=== PATIENT | male | born 1970 | race Caucasian/White ===

== ENCOUNTER 2020-07-19 18:17 | Emergency (ER) | payer OTHER, SELFPAY ==
--- NOTE | ~2020-07-19 | XR_ITS ---
XR chest 1V portable 07/19/2020 18:36 Indication: Covid positive. Shortness of breath. Procedure: AP portable chest Comparison: 09/04/2019 Findings: Bibasilar infiltrates, consistent with pneumonia. No pleural effusion or edema., heart size normal. No pneumothorax. Impression: 1: Bilateral infiltrates of the lower lung zones, consistent with pneumonia. Reviewed, dictated and finalized at location A. Impression: 1: Bilateral infiltrates of the lower lung zones, consistent with pneumonia.
[2020-07-19 18:20] VITALS: BP 152/84; PULSE 98; RESP 12; TEMP 36.4; O2SAT 99
--- NOTE | 2020-07-19 18:23 | ECG_ITS ---
Measurements Intervals [place] Rate: 102 P: 17 UT: 153 QRS: 19 QRSD: 92 T: 37 QT: 336 QTc: 438 Interpretive Statements SINUS TACHYCARDIA BASELINE WANDER- II, III BORDERLINE ECG Electronically Signed On 07-20-2020 14:54:12 HISTOPATH TECH by Julio Ybarra D.O.
--- NOTE | 2020-07-19 19:28 | ED.GENADULT ---
HPI - General Adult General Chief complaint: Upper Respiratory Infection Stated complaint: COVID+ 26OCT PERSISTENT COUGH Time Seen by Provider: 07/19/20 19:04 History of Present Illness HPI narrative: Patient is a 49-year-old male who presents ER with persistent cough. Patient reports Covid symptoms for the last 2 weeks and tested positive on 07/14/2020. Reports through the week she is just had persistent cough that will make him short of breath but is not short of breath with exertion or at rest. He continues to have fevers. He is without nausea or vomiting. He has some diarrhea. Reports she has been using albuterol once a day but it makes him cough too much so he does not continue to use it. Reports 17 people at his work tested positive. Related Data Home Medications Medication Instructions Recorded Confirmed rosuvastatin 5 mg tablet 5 mg PO DAILY 08/02/19 10/02/19 Allergies Allergy/AdvReac Type Severity Reaction Status Date / Time No Known Allergies Allergy Unknown Verified 08/08/19 13:43 Review of Systems Review of Systems: All systems reviewed & are unremarkable except as noted in HPI and below Constitutional: Constitutional: Denies chills, Reports fatigue and Reports fever(s) ENT: Denies nasal congestion and Reports sore throat Cardiovascular: Cardiovascular: Denies chest pain and Denies radiating jaw, neck or arm pain Respiratory: Respiratory: Reports cough, Reports dyspnea and Denies wheezing Gastrointestinal: Gastrointestinal: Reports diarrhea, Denies nausea and Denies vomiting PMFSH Past Medical History Medical History (Updated 07/19/20 @ 19:34 by Sunny Guevara MD) Anxiety Internal derangement of right knee Surgical History Surgical History History of orthopedic surgery Family History Family History Sibling Patient's brother is in good health Father Family history of diabetes mellitus in first degree relative Acute myocardial infarction Mother Family history of emphysema Social History Social History Smoking status: Former smoker Smoking end date: 09/19/13 Alcohol intake: never Gender identity (if verbalized by the patient): Male Exam Narrative: Exam Narrative: GENERAL: Well-appearing, well-nourished, and in no acute distress. HEAD: Normocephalic, atraumatic. ENT: Mucous membranes moist. CHEST: Clear to auscultation. No respiratory distress. HEART: Regular rate and rhythm. Normal peripheral pulses. ABDOMEN: Soft, nontender, nondistended. EXTREMITIES: Normal range of motion. No edema. SKIN: Warm, dry, no rash. NEURO: Alert and oriented x3. Course Course Emergency Course: Recommend patient use his albuterol every 4-6 hours regardless of coughing. Will start on azithromycin. Discharge home. Vital Signs Vital signs: Vital Signs Temperature 97.6 F 07/19/20 18:20 Pulse Rate 98 07/19/20 18:20 Respiratory Rate 12 07/19/20 18:20 Blood Pressure 152/84 H 07/19/20 18:20 Pulse Oximetry 99 07/19/20 18:20 Temperature 97.6 F 07/19/20 18:20 Pulse Rate 98 07/19/20 18:20 Respiratory Rate 12 07/19/20 18:20 Blood Pressure 152/84 H 07/19/20 18:20 Pulse Oximetry 99 07/19/20 18:20 Medical Decision Making Vital Signs Vital Signs: Vital Signs Temperature 97.6 F 07/19/20 18:20 Pulse Rate 98 07/19/20 18:20 Respiratory Rate 12 07/19/20 18:20 Blood Pressure 152/84 H 07/19/20 18:20 Pulse Oximetry 99 07/19/20 18:20 Temperature 97.6 F 07/19/20 18:20 Pulse Rate 98 07/19/20 18:20 Respiratory Rate 12 07/19/20 18:20 Blood Pressure 152/84 H 07/19/20 18:20 Pulse Oximetry 99 07/19/20 18:20 Imaging Data Radiologist's impression: ITS Impressions Chest X-Ray 07/19/20 18:45 Impression: 1: Bilateral infiltrates of the lower lung zone
== END 2020-07-19 19:55 | disposition home or self-care (01) ==
PROVIDERS: Emergency Provider Emergency Medicine; PCP Internal Medicine
DX: U07.1 COVID-19 (principal); J12.89 Other viral pneumonia; Z87.891 Personal history of nicotine dependence; R00.0 Tachycardia, unspecified
CPT/HCPCS: 71045; 93005; 99283

== ENCOUNTER 2022-06-20 23:08 | Emergency (ER) | payer BC, SELFPAY ==
[2022-06-20] VITALS (9 sets, daily range): BP systolic 160–179; BP diastolic 95–124; PULSE 84–96; RESP 13–17; TEMP 36.2; O2SAT 97–99
--- NOTE | ~2022-06-20 | XR_ITS ---
EXAMINATION: XR chest 2V DATE: 06/21/2022 00:06 INDICATION: Shortness of breath TECHNIQUE: PA and lateral views of the chest were obtained. COMPARISON: Chest radiograph dated 07/19/[address] dated 05/25/2018 FINDINGS: Unchanged mild linear discoid atelectasis/scarring at the lateral right midlung zone. No other airspa ce opacities, pulmonary edema, pleural effusion or pneumothorax. The cardiomediastinal silhouette is normal. Mild thoracic spondylosis. IMPRESSION: 1. 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 No acute cardiopulm onary disease. Reviewed, dictated and finalized at location A. IMPRESSION: 1. Unchanged chronic mild discoid atelectasis/scarring in the right midlung zon e. No acute cardiopulmonary disease.
--- NOTE | 2022-06-20 23:18 | ECG_ITS ---
Measurements Intervals [place] Rate: 95 P: -1 ID: 151 QRS: -2 QRSD: 92 T: 58 QT: 348 QTc: 438 Interpretive Statements SINUS RHYTHM WITH FREQUENT VENTRICULAR PREMATURE COMPLEXES ABNORMAL RHYTHM ECG COMPARED TO ECG 07/19/2020 18:30:08 PVCS ARE NOW SEEN Electronically Signed On 06-21-2022 14:42:51 CDT by Wiley Fajardo M.D.
[2022-06-20 23:28] LABS: Basophils Absolute Auto 0.1 K/mm3 (0.0-0.1); Basophils Percent Auto 0.8 % (0.2-1.2); Eosinophils Absolute Auto 0.1 K/mm3 (0-0.3); Eosinophils Percent Auto 0.9 % (0-4.4); Immature Granulocyte Absolute 0.02 K/mm3 (0.00-0.031); Immature Granulocyte Percent A 0.2 % (0-0.5); Lymphocytes Absolute Auto 2.25 K/mm3 (0.9-3.2); Lymphocytes Percent Auto 26.1 % (18.3-44.2); Mean Corpuscular HGB Conc 34.8 g/dl (32-36); Mean Corpuscular Hemoglobin 31.1 pg (26-34); Mean Corpuscular Volume 89.3 fl (80-100); Mean Platelet Volume 9.6 fl (7.4-10.4); Monocytes Absolute Auto 0.8 K/mm3 (0.1-0.6); Monocytes Percent Auto 9.4 % (2.6-8.5); Neutrophils Absolute Auto 5.4 K/mm3 (1.3-6.7); Neutrophils Percent Auto 62.6 % (45.5-73.1); Platelet Count Result 223 k/mm3 (150-375); Red Blood Count 5.15 M/mm3 (4.6-6.20); Red Cell Distribution Width 12.8 % (11.5-14.5); White Blood Count 8.6 K/mm3 (4.5-10.0)
[2022-06-20 23:39] LABS: Prothrombin Time 12.3 Seconds (11.1-14.7)
[2022-06-20 23:40] LABS: Partial Thromboplastin Time 27.1 SECONDS (22.3-36.8)
[2022-06-20 23:43] LABS: Alanine Aminotransferase 25 U/L (6-50); Albumin Level 4.2 g/dL (3.5-5.1); Alkaline Phosphatase 69 U/L (38-126); Anion Gap 9 mmol/L (8-16); Aspartate Amino Transferase 28 U/L (17-59); Bilirubin,Total 0.5 mg/dL (0.2-1.3); Blood Urea Nitrogen 13 mg/dL (9-20); Calcium 8.2 mg/dL (8.4-10.2); Carbon Dioxide 26 mmol/L (22-30); Chloride 104 mmol/L (98-107); Estimated CRCL calculation 95 ml/min; Estimated Glomerular Filt Rate > 60; Glucose 104 mg/dL (65-110); Lipase 130 U/L (23-300); Potassium 3.8 mmol/L (3.4-5.0); Sodium 139 mmol/L (137-145)
[2022-06-20 23:55] LABS: Troponin I < 0.012 ng/mL (0.000-0.034)
[2022-06-21] VITALS (11 sets, daily range): BP systolic 154–171; BP diastolic 102–117; PULSE 72–90; RESP 15–20; O2SAT 93–98
--- NOTE | 2022-06-21 00:44 | ED.GENADULT ---
HPI - General Adult General Chief complaint: Arrhythmia/Palpitations Stated complaint: irregular heartbeat Time Seen by Provider: 06/20/22 23:47 History of Present Illness HPI narrative: This is a 51-year-old male presenting to ED with a chief complaint of palpitations. Patient says he has been experiencing irregular heartbeat for several weeks now. He denies chest pain, difficulty breathing, lower extremity edema. He denies dizziness, lightheadedness or any syncope. Patient also has a chronic cough that he has been dealing with. This is being managed by his primary care physician. Related Data Allergies Allergy/AdvReac Type Severity Reaction Status Date / Time No Known Allergies Allergy Unknown Verified 06/01/22 16:39 Review of Systems Review of Systems: CONSTITUTIONAL: Denies night sweats. EYES: No eye pain ENT: Denies rhinorrhea CARDIOVASCULAR: Denies palpitations RESPIRATORY: admits cough GASTROINTESTINAL: Denies hematemesis GENITOURINARY: Denies hematuria. SKIN: Denies rash MUSCULOSKELETAL: Denies myalgia. NEUROLOGIC: Denies weakness. PSYCHIATRIC: Denies delusions PMFSH Past Medical History Medical History (Updated 06/21/22 @ 01:07 by Karthik Ramos MD) Anxiety Internal derangement of right knee Surgical History Surgical History History of orthopedic surgery Family History Family History Sibling Patient's brother is in good health Father Family history of diabetes mellitus in first degree relative Acute myocardial infarction Mother Family history of emphysema Social History Social History Smoking status: Former smoker Smoking end date: 09/19/13 Alcohol intake: current Substance use: never Substance use type: does not use Gender identity (if verbalized by the patient): Male Sexual Orientation (if Verbalized by the Patient): Straight or Heterosexual Agree to blood products: Yes Exam Narrative: APPEARANCE: No apparent distress. Head atraumatic. EYES: PERRLA/EOMI, NOSE: Normal no drainage NECK: Supple, Trachea midline RESPIRATORY: CTAB, No increased work of breathing. CARDIOVASCULAR: S1S2 appreciated, patient has frequent premature beats, no peripheral edema ABDOMINAL: Soft, nontender, nondistended, MUSCULOSKELETAl: No obvious deformities NEURO: Alert. Moving 4/4 extremities SKIN:: Warm, dry. Normal color PSYCHIATRIC: Normal affect Course Vital Signs Vital signs: Vital Signs Temperature 97.1 F L 06/20/22 23:11 Pulse Rate 90 06/20/22 23:11 Respiratory Rate 16 06/20/22 23:11 Blood Pressure 160/107 H 06/20/22 23:11 Pulse Oximetry 98 06/20/22 23:11 Temperature 97.1 F L 06/20/22 23:11 Pulse Rate 95 06/20/22 23:23 Respiratory Rate 16 06/20/22 23:11 Blood Pressure 160/107 H 06/20/22 23:11 Pulse Oximetry 98 06/20/22 23:11 Medical Decision Making MDM Narrative Medical decision making narrative: is a 51-year-old male presenting ED with a chief complaint of palpitations. An ACS workup was ordered per nursing protocol. laboratory studies were all within acceptable limits. Patient's troponin was negative. EKG interpretation: Rhythm [sinus], Rate 95, [place] -[normal], CT -[normal], QRS [narrow], QTC [normal], T waves -[negative for concerning inversions], ST Segments - [Negative for concerning elevations] Final interpretations: sinus rhythms with frequent PVCs My interpretation of the x-ray was no acute cardiopulmonary process. While interviewing the patient I could watch the night monitor and correlate his PVCs to when he is feeling the fluttering in his chest. Other than being slightly uncomfortable the patient is asymptomatic. He is comfortable being discharged home to follow-up with a restaurant operations manager on an outpatient basis. Vital Signs Vital Signs:
== END 2022-06-21 01:37 | disposition home or self-care (01) ==
PROVIDERS: Emergency Provider Emergency Medicine; PCP Family Medicine
DX: R00.2 Palpitations (principal); I49.3 Ventricular premature depolarization; F41.9 Anxiety disorder, unspecified; Z87.891 Personal history of nicotine dependence
CPT/HCPCS: 36415; 71046; 80053; 83690; 84484; 85025; 85610; 85730; 93005; 99284

== ENCOUNTER 2022-06-22 07:51 | Outpatient (CLI) | payer BC, SELFPAY ==
--- NOTE | 2022-06-22 07:54 | EST_ITS ---
Patient Info Name: Gaudencio Varma Age: 51 years : 1970 Gender: Male Ht: 68 in Wt: 200 lbs BSA: 2.11 m2 Exam Date: 06/22/2022 9:45 AM Exam Location: [facility] Stress Patient Status: Outpatient Admit Date: 06/22/2022 Staff Ordering Physician: Ambrocio De La Cruz DO Attending Provider: Ambrocio De La Cruz DO Exercise Technologist: Ambrocio Garcia RDCS, RT Exercise Physician: Julio Ybarra DO Exam Type: CA stress test treadmill Study Info A treadmill exercise stress test was performed. Summary 1. 1. Negative Javi exercise stress test for ischemic ST changes by ECG criteria. 2. 2. Good functional capacity, achieving 10 METs of workload. 3. 3. Baseline hypertension. 4. 4. Appropriate HR response to exercise. 5. 5. Appropriate HR recovery at 1 minute post exercise. 6. 6. No imaging with stress testing. 7. 7. Patient informed of the above results. Protocol: Javi Stress ECG Details Stage: REST Duration (min): 1 min : 7 sec Speed (mph): 1.0 Grade (%): 0 HR (bpm): 86 SBP (mmHg): 141 DBP (mmHg): 107 METS: --- Stage: REST Duration (min): 13 min : 52 sec Speed (mph): 0.0 Grade (%): 0 HR (bpm): 95 SBP (mmHg): 141 DBP (mmHg): 107 METS: --- Stage: STAGE 1 Duration (min): 1 min : 0 sec Speed (mph): 1.7 Grade (%): 10 HR (bpm): 113 SBP (mmHg): 141 DBP (mmHg): 107 METS: --- Stage: STAGE 1 Duration (min): 2 min : 0 sec Speed (mph): 1.7 Grade (%): 10 HR (bpm): 117 SBP (mmHg): 141 DBP (mmHg): 107 METS: --- Stage: STAGE 1 Duration (min): 3 min : 0 sec Speed (mph): 1.7 Grade (%): 10 HR (bpm): 124 SBP (mmHg): 188 DBP (mmHg): 101 METS: --- Stage: STAGE 2 Duration (min): 1 min : 0 sec Speed (mph): 2.5 Grade (%): 12 HR (bpm): 132 SBP (mmHg): 188 DBP (mmHg): 101 METS: --- Stage: STAGE 2 Duration (min): 2 min : 0 sec Speed (mph): 2.5 Grade (%): 12 HR (bpm): 146 SBP (mmHg): 190 DBP (mmHg): 107 METS: --- Stage: STAGE 2 Duration (min): 3 min : 0 sec Speed (mph): 2.5 Grade (%): 12 HR (bpm): 142 SBP (mmHg): 190 DBP (mmHg): 107 METS: --- Stage: STAGE 3 Duration (min): 1 min : 0 sec Speed (mph): 3.4 Grade (%): 14 HR (bpm): 150 SBP (mmHg): 201 DBP (mmHg): 106 METS: --- Stage: STAGE 3 Duration (min): 2 min : 0 sec Speed (mph): 3.4 Grade (%): 14 HR (bpm): 153 SBP (mmHg): 201 DBP (mmHg): 106 METS: --- Stage: STAGE 3 Duration (min): 3 min : 0 sec Speed (mph): 3.4 Grade (%): 14 HR (bpm): 155 SBP (mmHg): 201 DBP (mmHg): 106 METS: --- Stage: STAGE 4 Duration (min): 0 min : 1 sec Speed (mph): 4.2 Grade (%): 16 HR (bpm): 155 SBP (mmHg): 201 DBP (mmHg): 106 METS: --- Stage: RECOVERY Duration (min): 0 min : 58 sec Speed (mph):
--- NOTE | 2022-06-22 07:54 | ECHO_ITS ---
Patient Info Name: Gaudencio Varma Age: 51 years : 1970 Gender: Male Ht: 68 in Wt: 200 lbs BSA: 2.11 m2 HR: 88 bpm BP: 163 / 93 mmHg Heart Rhythm: Sinus Arrhythmia Technical Quality: Good Exam Date: 06/22/2022 8:42 AM Exam Location: [facility] Patient Status: Outpatient Admit Date: 06/22/2022 Staff Ordering Physician: Ambrocio De La Cruz DO Swatch Cutter: Ambrocio Garcia RDCS, RT Attending Provider: Ambrocio De La Cruz DO Referring Physician: Jono MESSER; Exam Type: CA echo doppler color flow Study Info Indications R00.2 - Palpitations R07.9 - Chest pain, unspecified Complete two-dimensional, color flow and Doppler transthoracic echocardiogram is performed. Strain analysis performed. Summary 1. Complete two-dimensional, color flow and Doppler transthoracic echocardiogram is performed. 2. Left ventricular chamber dimension is normal. 3. Left ventricular systolic function is normal, estimated at 60-65%. 4. The left ventricular diastolic function is grade I diastolic dysfunction. 5. E/e' 7 is not elevated. 6. Global longitudinal strain is abnormal at -11.9%. 7. There is trace tricuspid valve regurgitation. Left Ventricle E/e' 7 is not elevated. Global longitudinal strain is abnormal at -11.9%. Left ventricular chamber dimension is normal. Left ventricular systolic function is normal, estimated at 60-65%. The left ventricular diastolic function is grade I diastolic dysfunction. Right Ventricle Right ventricular systolic function is normal and with normal TAPSE 2.4 cm. Right ventricular chamber dimension is normal. Left Atria Left atrial chamber dimension is normal. Right Atria Right atrial chamber dimension is normal. Aortic Valve The aortic valve is trileaflet. There is no aortic valve stenosis. There is no aortic valve regurgitation. Pulmonic Valve There is no pulmonic regurgitation. Mitral Valve There is no mitral valve stenosis. There is no mitral valve regurgitation. Tricuspid Valve There is trace tricuspid valve regurgitation. RVSP is not calculated due to an inadequate TR jet. Pericardium/Pleural There is no pericardial effusion. Inferior Vena Cava Normal inferior vena cava with >50% collapse upon inspiration consistent with normal right atrial pressure, 5 mmHg. Aorta The aortic root size at the sinus of Valsalva is normal. Left Ventricular Outflow Tract Name Value Normal LVOT 2D LVOT Diameter 1.9 cm LVOT Doppler LVOT Peak Gradient 3 mmHg LVOT Mean Gradient 2 mmHg LVOT VTI 19 cm LVOT VTI/AV VTI Ratio 1.0 LVOT Stroke Volume 55 ml LVOT CO 4.2 l/min LVOT CI 2.0 l/min/m2 Mitral Valve Name Value Normal MV Doppler
--- NOTE | 2022-07-02 12:28 | WPDHOLTEREM ---
Holter/Event Monitor Holter/Event Monitor Date of procedure: 06/22/22 Holter/Event Procedure: 48 Hr Holter Monitor Indications: Chest buzzing, palpitations Conclusion: 1. 48 hour holter monitor on 06/22/22. 2. Underlying rhythm is sinus rhythm. HR range 62-174 bpm; average HR 97 bpm. HR at 174 bpm was at 12:51. 3. No premature supraventricular complexes. No supraventricular tachycardia. 4. There are 15,069 premature ventricular complexes, 3 ventricular couplets, 1,057 ventricular bigeminy, and 709 ventricular trigeminy. No ventricular tachycardia. 5. No sinoatrial or atrioventricular blocks. No significant pauses greater than 2 seconds. 6. No symptoms available for correlation.
== END 2022-06-22 07:52 | disposition home or self-care (01) ==
PROVIDERS: PCP Family Medicine; Visit Provider Family Medicine
DX: R09.89 Other specified symptoms and signs involving the circulatory and respiratory systems (principal); R00.2 Palpitations
CPT/HCPCS: 93017; 93225; 93226; 93306

== ENCOUNTER 2023-10-05 08:23 | Outpatient (CLI) | payer BC, SELFPAY ==
[2023-10-05 13:10] LABS: Basophils Percent Auto 0.9 % (0.2-1.2); Eosinophils Absolute Auto 0.1 K/mm3 (0-0.3); Eosinophils Percent Auto 1.3 % (0-4.4); Hematocrit 46.8 % (42.0-52.0); Hemoglobin 14.9 g/dL (14.0-18.0); Immature Granulocyte Absolute 0.01 K/mm3 (0.00-0.031); Immature Granulocyte Percent A 0.2 % (0-0.5); Lymphocytes Absolute Auto 1.42 K/mm3 (0.9-3.2); Lymphocytes Percent Auto 30.5 % (18.3-44.2); Mean Corpuscular HGB Conc 31.8 g/dl (32-36); Mean Corpuscular Volume 94.4 fl (80-100); Mean Platelet Volume 10.9 fl (7.4-10.4); Monocytes Absolute Auto 0.5 K/mm3 (0.1-0.6); Monocytes Percent Auto 10.8 % (2.6-8.5); Neutrophils Absolute Auto 2.6 K/mm3 (1.3-6.7); Neutrophils Percent Auto 56.3 % (45.5-73.1); Platelet Count Result 248 k/mm3 (150-375); Red Blood Count 4.96 M/mm3 (4.6-6.20); Red Cell Distribution Width 12.5 % (11.5-14.5); White Blood Count 4.7 K/mm3 (4.5-10.0)
[2023-10-05 13:24] LABS: Alanine Aminotransferase 36 U/L (6-50); Albumin Level 4.1 g/dL (3.5-5.1); Alkaline Phosphatase 53 U/L (38-126); Anion Gap 7 mmol/L (8-16); Aspartate Amino Transferase 42 U/L (17-59); Bilirubin,Total 0.5 mg/dL (0.2-1.3); Blood Urea Nitrogen 16 mg/dL (9-20); Calcium 8.9 mg/dL (8.4-10.2); Carbon Dioxide 28 mmol/L (22-30); Chloride 104 mmol/L (98-107); Cholesterol 171 mg/dL (0-200); Estimated Glomerular Filt Rate > 60; Glucose 86 mg/dL (65-110); HDL Direct 26 mg/dL; Potassium 4.4 mmol/L (3.4-5.0); Sodium 139 mmol/L (137-145); Triglycerides 123 mg/dL (<150)
[2023-10-05 13:35] LABS: LDL Cholesterol Direct 110 mg/dL
[2023-10-05 13:54] LABS: Prostate Specific Antigen 0.5 ng/mL (< OR = 4.0)
== END 2023-10-05 08:24 | disposition home or self-care (01) ==
LOC: ANHGOSHLAB 08:24
PROVIDERS: PCP Family Medicine; Visit Provider Family Medicine
DX: R53.83 Other fatigue (principal); Z13.220 Encounter for screening for lipoid disorders; Z13.228 Encounter for screening for other metabolic disorders; Z12.5 Encounter for screening for malignant neoplasm of prostate
CPT/HCPCS: 36415; 80053; 80061; 84153; 85025; G0103

== ENCOUNTER 2023-11-22 01:09 | Day surgery (SDC) | payer BC, SELFPAY ==
[2023-10-13 08:19] VITALS: BMI 28.5
--- NOTE | 2023-10-21 10:38 | SUR.PREOP ---
Patient called regarding upcoming procedure. Reviewed preop instructions, appointment times, and procedure prep.
[2023-10-26 12:22] VITALS: BMI 28.5
[2023-11-09 11:41] VITALS: BMI 28.5
--- NOTE | 2023-11-18 13:36 | SUR.PREOP ---
Patient called regarding upcoming procedure. Reviewed preop instructions, appointment times, and procedure prep. Pt instructions sent to his email.
[2023-11-22 06:18] VITALS: BP 104/67; PULSE 71; RESP 16; TEMP 36.3; O2SAT 99; BMI 27.3
[2023-11-22] MEDS: LACTATED RINGERS 1,000 ML 150 ML IV CONT (06:44)
--- NOTE | 2023-11-22 07:28 | WPDANESEPPF ---
Anes - Initial Pre Proc Eval Procedure: Operation Date: 11/22/23 07:30 Proposed Procedures p Screening Colonoscopy - Rc Joseph MD Date/Time: 11/22/23 07:28 Surgeon: Rc Joseph MD Pre Op Diagnosis: neoplasm screening Patient Data Age: 53 Gender: M Height: 1.73 m Weight: 81.5 kg Last Vital Signs Temp 97.3 F L 11/22/23 06:18 Pulse 71 11/22/23 06:18 Resp 16 11/22/23 06:18 BP 104/67 11/22/23 06:18 Pulse Ox 99 11/22/23 06:18 O2 Del Method Room Air 11/22/23 06:18 Allergies Allergy/AdvReac Type Severity Reaction Status Date / Time No Known Allergies Allergy Unknown Verified 11/22/23 06:31 Home Medications Medication Instructions Recorded Confirmed Type omeprazole 20 mg capsule,delayed 20 mg PO BID #180 caps 12/31/21 11/22/23 Rx release metoprolol succinate 100 mg See Rx Instructions .Route 05/27/23 11/22/23 Rx tablet,extended release 24 hr .COMPLEX #90 tabs olmesartan 40 mg tablet See Rx Instructions .Route 05/27/23 11/22/23 Rx .COMPLEX #90 tabs amoxicillin 875 mg-potassium 1 tablet PO BID #14 tabs 11/15/23 11/22/23 Rx clavulanate 125 mg tablet lorazepam 0.5 mg tablet 0.5 mg PO BID PRN anxiety #60 tabs 11/18/23 11/22/23 Rx rosuvastatin 5 mg tablet See Rx Instructions .Route 11/18/23 11/22/23 Rx .COMPLEX #90 tabs Patient hx anesthesia problems: none Family hx anesthesia problems: none Results Review: All pre-operative results and documents have been reviewed as part of the pre-operative evaluation. ON LICENSE OF [facility] Past Medical History Medical History (Updated 11/16/23 @ 17:14 by Aurelio Cabrera MD) Anxiety Internal derangement of right knee Surgical History Surgical History History of orthopedic surgery Family History Family History Sibling Patient's brother is in good health Father Family history of diabetes mellitus in first degree relative Acute myocardial infarction Mother Family history of emphysema Social History Social History Smoking packs per day: 2 Smoking cigarettes per day: 40.0 Years smoked: 17 Smoking pack-years: 34.00 Smoking status: Former smoker Tobacco type: cigarettes Smoking end date: 09/19/13 Alcohol intake: current Substance use: never Substance use type: does not use Lack of Transportation: No Lack of Food: Never True Current Housing: I Have Housing Concerned About Future Housing: No Difficulty Paying Gas/Electric Bills: No Difficulty Paying for Meds: No Currently Unemployed: No Education: Don't Know Difficulty w/ Childcare or Family Care: Decline to Answer Living arrangements: other Additional living arrangements comments: with sp Occupation/Education: occupation Gender identity (if verbalized by the patient): Male Sexual Orientation (if Verbalized by the Patient): Straight or Heterosexual Agree to blood products: Yes Anes - Eval Final PreProcedure Day of Procedure 11/22/23 07:28 Patient weight: normal Heart: regular rate and rhythm Lungs: clear to auscultation Airway: Mallampati scale class II Neurological: alert and oriented Last oral intake: >/= 8 hours ASA classification: III Emergent: no Anesthetic plan: proceed Anesthesia type and monitoring: general GIVS and standard monitoring Results Review: All pre-operative results and documents have been reviewed as part of the pre-operative evaluation. Informed Consent: The patient's anesthetic plan and its attendant risks and benefits were discussed with the patient/family/POA. Questions were solicited and answers provided to the satisfaction of the patient/family/POA.
--- NOTE | 2023-11-22 07:29 | PM.HPGS ---
History of Present Illness History of Present Illness Consent: Risks, benefits, and alternatives have been discussed and questions answered. Patient agrees to proceed with procedure. Chief complaint: neoplasm screening Narrative: Gaudencio Varma is a 53 year old male here for screening colonoscopy, had one in 2010 Review of Systems Constitutional: Constitutional: Denies headache(s) and Denies weakness Eyes: Eyes: Denies blurry vision ENT: Reports Normal hearing present, Denies headache(s) and Denies neck pain Cardiovascular: Cardiovascular: Denies chest pain and Denies dyspnea Respiratory: Respiratory: Denies dyspnea Gastrointestinal: Gastrointestinal: Reports no additional gastrointestinal complaints Genitourinary: Genitourinary: Denies dysuria Musculoskeletal: Musculoskeletal: Denies neck pain Integumentary/Breasts: Skin/Breast: Denies dry skin Neurologic: Reports Normal hearing present, Denies headache(s) and Denies weakness Psychiatric: Psychiatric: Denies anxiety Endocrine: Endocrine: Denies change in body appearance Hematologic/Lymphatic: Hematologic/Lymphatic: Denies easy bleeding Allergic/Immunologic: Allergic/Immunologic: Denies urticaria PMFSH Past Medical History Medical History (Updated 11/22/23 @ 07:30 by Rc Joseph MD) Anxiety Colon cancer screening Internal derangement of right knee Surgical History Surgical History History of orthopedic surgery Family History Family History Sibling Patient's brother is in good health Father Family history of diabetes mellitus in first degree relative Acute myocardial infarction Mother Family history of emphysema Social History Social History Smoking packs per day: 2 Smoking cigarettes per day: 40.0 Years smoked: 17 Smoking pack-years: 34.00 Smoking status: Former smoker Tobacco type: cigarettes Smoking end date: 09/19/13 Alcohol intake: current Substance use: never Substance use type: does not use Lack of Transportation: No Lack of Food: Never True Current Housing: I Have Housing Concerned About Future Housing: No Difficulty Paying Gas/Electric Bills: No Difficulty Paying for Meds: No Currently Unemployed: No Education: Don't Know Difficulty w/ Childcare or Family Care: Decline to Answer Living arrangements: other Additional living arrangements comments: with sp Occupation/Education: occupation Gender identity (if verbalized by the patient): Male Sexual Orientation (if Verbalized by the Patient): Straight or Heterosexual Agree to blood products: Yes Meds Home Medications and Allergies Home Medications Medication Instructions Recorded Confirmed Type omeprazole 20 mg capsule,delayed 20 mg PO BID #180 caps 12/31/21 11/22/23 Rx release metoprolol succinate 100 mg See Rx Instructions .Route 05/27/23 11/22/23 Rx tablet,extended release 24 hr .COMPLEX #90 tabs olmesartan 40 mg tablet See Rx Instructions .Route 05/27/23 11/22/23 Rx .COMPLEX #90 tabs amoxicillin 875 mg-potassium 1 tablet PO BID #14 tabs 11/15/23 11/22/23 Rx clavulanate 125 mg tablet lorazepam 0.5 mg tablet 0.5 mg PO BID PRN anxiety #60 tabs 11/18/23 11/22/23 Rx rosuvastatin 5 mg tablet See Rx Instructions .Route 11/18/23 11/22/23 Rx .COMPLEX #90 tabs Allergies Allergy/AdvReac Type Severity Reaction Status Date / Time No Known Allergies Allergy Unknown Verified 11/22/23 06:31 Vital Signs Vital Signs - 24 hr 11/22/23 06:18 Temperature 97.3 F L Pulse Rate 71 Respiratory Rate 16 Blood Pressure 104/67 Pulse Oximetry 99 Oxygen Delivery Room Air Exam Const: General: comfortable and no acute distress HENMT: Face/Nose/Sinus: Normal nares present Eyes: General: appearance normal, both eyes and all rel
[2023-11-22 07:46] VITALS: BP 85/59; PULSE 70; RESP 18; O2SAT 97
[2023-11-22 07:56] VITALS: BP 106/68; PULSE 68; RESP 17; O2SAT 97
[2023-11-22 08:06] VITALS: BP 114/79; PULSE 63; RESP 15; O2SAT 100
== END 2023-11-22 08:16 | disposition home or self-care (01) ==
PROVIDERS: PCP Family Medicine; Visit Provider Internal Medicine Gastroenterology
PROC: 0DJD8ZZ Inspection of Lower Intestinal Tract, Via Natural or Artificial Opening Endoscopic (ICD-10-PCS; CPT 45378; principal; 2023-11-22 07:30)
DX: Z12.11 Encounter for screening for malignant neoplasm of colon (principal); K57.30 Diverticulosis of large intestine without perforation or abscess without bleeding; K64.8 Other hemorrhoids; F41.9 Anxiety disorder, unspecified; Z87.891 Personal history of nicotine dependence
CPT/HCPCS: 45378; J2704; J7120

== ENCOUNTER 2024-03-20 16:01 | Emergency (ER) | payer BC, SELFPAY ==
--- NOTE | ~2024-03-20 | CT_ITS ---
EXAMINATION: CT abdomen pelvis w con DATE: 03/20/2024 18:05 INDICATION: Abdominal pain TECHNIQUE: Computed tomography (CT) of the abdomen and pelvis was performed with 100 mL Omnipaque-350 intravenous contrast. Automated exposure control and iterative reconstruction technique were employe d. The dose-length product was 477.24 mGy-cm. COMPARISON: None. FINDINGS: Lower thorax: Unremarkable Liver: Normal. Biliary/Gallbladder: Gallbladder is normal. No bile duct dilation. Pancreas: No mass or duct dilation. Spleen: Normal. Adrenals:No mass. Kidneys: No suspicious mass, obstructing stone, or hydronephrosis. GI tract: Moderate distal esophageal and gastric wall edema. No small or large bowel dilation. Normal appendix. Diverticulosis without diverticulitis. Mesentery/Peritoneum: No ascites, mass, or free air. Retroperitoneum: No mass. Pelvis: Pelvic organs are within normal limits. Soft Tissues: Soft tissues and body wall unremarkable. Bones: No acute osseous finding. IMPRESSION: Moderate esophagitis/gastritis. Reviewed, dictated and finalized at location K.
[2024-03-20 16:03] VITALS: BP 128/94; PULSE 100; RESP 16; TEMP 36.7; O2SAT 98
[2024-03-20 16:34] LABS: Appearance Urine Clear (Clear); Bilirubin Urine Negative (Negative); Blood Urine Negative (Negative); Color Urine Yellow (Yellow); Glucose Urine UA Negative (Negative); Ketones Urine Trace mg/dL (Negative); Leukocyte Esterase Ur Negative LEU/UL (Negative); Nitrate Urine Negative (Negative); Protein Urine Negative (Negative); Specific Grav Ur 1.007 (1.001-1.035); Urobilinogen Urine 0.2 mg/dL (<2.0)
[2024-03-20 16:42] LABS: Add Urine Microscopic? NO
[2024-03-20 16:43] LABS: Alanine Aminotransferase 25 U/L (6-50); Albumin Level 4.5 g/dL (3.5-5.1); Alkaline Phosphatase 53 U/L (38-126); Anion Gap 8 mmol/L (4-12); Aspartate Amino Transferase 33 U/L (17-59); Bilirubin,Total 0.8 mg/dL (0.2-1.3); Blood Urea Nitrogen 17 mg/dL (9-20); Calcium 8.7 mg/dL (8.4-10.2); Carbon Dioxide 26 mmol/L (22-30); Chloride 106 mmol/L (98-107); Estimated CRCL calculation 73 ml/min; Estimated Glomerular Filt Rate > 60; Glucose 93 mg/dL (65-110); Lipase 126 U/L (23-300); Sodium 140 mmol/L (137-145)
[2024-03-20 16:44] LABS: Basophils Percent Auto 0.4 % (0.2-1.2); Eosinophils Absolute Auto 0.1 K/mm3 (0-0.3); Eosinophils Percent Auto 0.5 % (0-4.4); Hematocrit 47.3 % (42.0-52.0); Hemoglobin 16.3 g/dL (14.0-18.0); Immature Granulocyte Absolute 0.03 K/mm3 (0.00-0.031); Immature Granulocyte Percent A 0.3 % (0-0.5); Lymphocytes Absolute Auto 1.58 K/mm3 (0.9-3.2); Lymphocytes Percent Auto 16.8 % (18.3-44.2); Mean Corpuscular HGB Conc 34.5 g/dl (32-36); Mean Corpuscular Volume 89.9 fl (80-100); Mean Platelet Volume 10.1 fl (7.4-10.4); Monocytes Absolute Auto 0.7 K/mm3 (0.1-0.6); Monocytes Percent Auto 7.1 % (2.6-8.5); Neutrophils Percent Auto 74.9 % (45.5-73.1); Platelet Count Result 232 k/mm3 (150-375); Red Blood Count 5.26 M/mm3 (4.6-6.20); Red Cell Distribution Width 13.6 % (11.5-14.5); White Blood Count 9.4 K/mm3 (4.5-10.0)
--- NOTE | 2024-03-20 17:01 | ED.ABDPAIN ---
HPI - Abdominal Pain General Chief Complaint: Abdominal Pain Stated Complaint: lower abd pain Time Seen by Provider: 03/20/24 17:00 Source: patient History of Present Illness HPI narrative: 53 YEARS OLD WHITE MALE CAME TO THE EMERGENCY ROOM BY PRIVATE CAR COMPLAINING OF CHRONIC INTERMITTENT ABDOMINAL PAIN FOR MONTHS. STATUS POST COLONOSCOPY 7 MONTHS AGO WITHOUT SIGNIFICANT RESULT. PATIENT REPORTS INCREASED PAIN AT THE LEFT LOWER QUADRANT OVER THE LAST 2 DAYS. PATIENT WORKS OUT DAILY. HAVE SOME STRESS GOING ON. HE DENIES ANY FEVER, CHILLS, NAUSEA, VOMITING, DIARRHEA, CONSTIPATION OR URINARY SYMPTOMS KNEE NO HISTORY OF LUNG SURGERY. HISTORY OF HYPERTENSION, HYPERLIPIDEMIA. DRINK ALCOHOL FEW DAYS A WEEK. Related Data Allergies Allergy/AdvReac Type Severity Reaction Status Date / Time No Known Allergies Allergy Unknown Verified 03/20/24 17:09 Review of Systems Review of Systems: All systems reviewed & are unremarkable except as noted in HPI and below PMFSH Past Medical History Medical History Anxiety Colon cancer screening Internal derangement of right knee Surgical History Surgical History History of orthopedic surgery Family History Family History Sibling Patient's brother is in good health Father Family history of diabetes mellitus in first degree relative Acute myocardial infarction Mother Family history of emphysema Social History Social History Smoking packs per day: 2 Smoking cigarettes per day: 40.0 Years smoked: 17 Smoking pack-years: 34.00 Smoking status: Former smoker Tobacco type: cigarettes Smoking end date: 09/19/13 Alcohol intake: current Substance use: never Substance use type: does not use Lack of Transportation: No Lack of Food: Never True Current Housing: I Have Housing Concerned About Future Housing: No Difficulty Paying Gas/Electric Bills: No Difficulty Paying for Meds: No Currently Unemployed: No Education: Don't Know Difficulty w/ Childcare or Family Care: Decline to Answer Living arrangements: other Additional living arrangements comments: with sp Occupation/Education: occupation Gender identity (if verbalized by the patient): Male Sexual Orientation (if Verbalized by the Patient): Straight or Heterosexual Agree to blood products: Yes Exam Narrative: GENERAL APPEARANCE: WELL-DEVELOPED, WELL-NOURISHED SKIN: NORMAL COLOR HEAD: NORMOCEPHALIC, NONTRAUMATIC EYES: CLEAR CONJUNCTIVA ENT: OROPHARYNX NORMAL, EARS NORMAL, NOSE NORMAL NECK: SUPPLE, NONTENDER CHEST AND RESPIRATORY: AIRWAY PATENT, NO RESPIRATORY DISTRESS, NO ACCESSORY MUSCLE USE HEART: REGULAR RATE/RHYTHM ABDOMEN: SOFT, MILD TENDERNESS LEFT LOWER QUADRANT, NO BRUISES, NO SWELLING, NO RASH, NO ORGANOMEGALY, QUIET BOWEL SOUNDS VASCULAR: NORMAL PERIPHERAL PULSES, NORMAL CAPILLARY REFILL. MUSCULOSKELETAL: NORMAL RANGE OF MOTION, NONTENDER BACK NEUROLOGIC: ALERT AND ORIENTED ?3, INCLINOMETER TESTER IS NORMAL TESTED, NO GROSS MOTOR DEFICIT Course Vital Signs Vital signs: Vital Signs Temperature 36.7 C 03/20/24 16:03 Pulse Rate 100 03/20/24 16:03 Respiratory Rate 16 03/20/24 16:03 Blood Pressure 128/94 H 03/20/24 16:03 Pulse Oximetry 98 03/20/24 16:03 Oxygen Delivery Room Air 03/20/24 16:03 Temperature 36.7 C 03/20/24 16:03 Pulse Rate 52 L 03/20/24 18:22 Respiratory Rate 18 03/20/24 18:22 Blood Pressure 143/78 H 03/20/24 18:22 Pulse Oximetry 100 03/20/24 18:
[2024-03-20] MEDS: ONDANSETRON INJ 4 MG/2 ML VIAL IV PUSH (17:48)
[2024-03-20] MEDS: MORPHINE SULFATE (*CRX) 4 MG/ML INJ IV PUSH (17:48)
[2024-03-20] MEDS: SODIUM CHLORIDE 0.9% IV 1,000 ML 999 ML IV CONT (17:48)
[2024-03-20 18:22] VITALS: BP 143/78; PULSE 52; RESP 18; O2SAT 100
[2024-03-20 18:49] VITALS: BP 149/97; PULSE 88; RESP 18; O2SAT 96
== END 2024-03-20 18:59 | disposition home or self-care (01) ==
PROVIDERS: Emergency Medicine; Emergency Provider Emergency Medicine; PCP Family Medicine
DX: R10.32 Left lower quadrant pain (principal); Z87.891 Personal history of nicotine dependence; K20.90 Esophagitis, unspecified without bleeding; K29.70 Gastritis, unspecified, without bleeding
CPT/HCPCS: 36415; 74177; 80053; 81003; 83690; 85025; 96361; 96374; 96375; 99284; J2270; J2405; J7030; Q9967

== ENCOUNTER 2025-03-24 13:27 | Emergency (ER) | payer BC, SELFPAY ==
[2025-03-24] VITALS (16 sets, daily range): BP systolic 117–131; BP diastolic 83–96; PULSE 80–105; RESP 12–24; TEMP 37.7; O2SAT 94–100
--- NOTE | ~2025-03-24 | XR_ITS ---
EXAMINATION: XR chest 2V Exam Date/Time: 03/24/2025 14:30 CDT HISTORY: fever, weakness Comparison: 06/20/2022. RESULT: Lines, tubes, and devices: None. Lungs and pleura: Right peripheral midlung scar, otherwise clear. Cardiomediastinal silhouette: Stable. Other: No acute osseous or upper abdominal finding. IMPRESSION: No acute cardiopulmonary process. Reviewed, dictated and finalized at location K.
--- OUTSIDE RECORDS SUMMARY | 2025-03-24 13:29 | XMS_ITS | Clinical Summary ---
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
--- OUTSIDE RECORDS SUMMARY | 2025-03-24 13:29 | XMS_ITS | Referral Summary ---
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
--- OUTSIDE RECORDS SUMMARY | 2025-03-24 14:16 | XMS_ITS | Referral Summary ---
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
--- OUTSIDE RECORDS SUMMARY | 2025-03-24 14:16 | XMS_ITS | Clinical Summary ---
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
[2025-03-24 14:40] LABS: Influenza A QL RT-PCR Negative (Negative); Influenza B QL RT-PCR Negative (Negative); RSV RNA, RT-PCR Negative (Negative); SARS-CoV-2 RNA PCR Negative (Negative)
--- NOTE | 2025-03-24 14:53 | ED_ITS ---
HPI - Fever General Chief Complaint: Fever Stated Complaint: sick for last 2 weeks Time Seen by Provider: 03/24/25 14:06 History of Present Illness HPI Narrative: 54-year-old male with a history of dyslipidemia and hypertension presents to the emergency department for fever 3 days. Patient states 8 days ago he began having nausea, vomiting and diarrhea which lasted a few days. The vomiting and diarrhea resolved and 3 days ago he developed diffuse body aches and muscle pains, chills and throat discomfort. He went to urgent care 2 days ago and had a negative COVID and strep test and was started on amoxicillin which he has been taking without improvement. He reports decreased p.o. intake due to nausea and generalized malaise. He denies focal abdominal pain, cough or congestion, chest pain or shortness of breath, rash. Denies recent tick or insect bites. Has had some left-sided otalgia. Patient states he has to foster children who have been intermittently sick with similar symptoms for the past several weeks. Related Data Allergies Allergy/AdvReac Type Severity Reaction Status Date / Time No Known Allergies Allergy Unknown Verified 12/17/24 07:31 Review of Systems 2 Review of Systems: All systems reviewed & are unremarkable except as noted in HPI and below PMFSH Past Medical History Medical History Family history of premature CAD Colon cancer screening Anxiety Internal derangement of right knee Surgical History Surgical History History of orthopedic surgery Family History Family History Sibling Patient's brother is in good health Father Family history of diabetes mellitus in first degree relative Acute myocardial infarction Mother Family history of emphysema Social History Social History Smoking packs per day: 2 Smoking cigarettes per day: 40.0 Years smoked: 17 Smoking pack-years: 34.00 Smoking status: Former smoker Tobacco type: cigarettes Smoking end date: 09/19/13 Alcohol intake: former Substance use: never Substance use type: does not use Lack of Transportation: No Lack of Food: Never True Current Housing: I Have Housing Concerned About Future Housing: No Difficulty Paying Gas/Electric Bills: No Difficulty Paying for Meds: No Currently Unemployed: No Education: Don't Know Difficulty w/ Childcare or Family Care: Decline to Answer Living arrangements: other Additional living arrangements comments: with sp Occupation/Education: occupation Gender identity (if verbalized by the patient): Male Sexual Orientation (if Verbalized by the Patient): Straight or Heterosexual Agree to blood products: Yes Exam 2 Narrative: GENERAL: Well-appearing, well-nourished, and in no acute distress. HEAD: Normocephalic, atraumatic. EYES: PERRLA and EOMI. ENT: Nares clear, no rhinorrhea or epistaxis. Mucous membranes moist. Left TM with an effusion, no bulging or erythema. Right TM is harper nonbulging. Normal canals bilaterally. Posterior pharynx with mild erythema, no tonsillar hypertrophy or exudates, uvula is midline. No trismus. Patient is tolerating secretions. NECK: Supple. No nuchal rigidity CHEST: Clear to auscultation. No respiratory distress. HEART: Regular rate and rhythm. No murmur heard. Normal peripheral pulses. ABDOMEN: Soft, nontender, nondistended, normal active bowel sounds. No rebound, guarding or rigidity. No CVA tenderness EXTREMITIES: Normal range of motion. No edema. SKIN: Warm, dry, no rash. NEURO: No focal deficits. Alert and oriented x3 Course Vital Signs Vital signs: Vital Signs Pulse Rate 95 03/24/25 13:41 Respiratory Rate 14 03/24/25 13:41 Blood Pressure 128/96 H 03/24/25 13:41 Pulse Oximetry 96 03/24/25 13:41 Temperature 99.9 F H 03/24/25 13:46 Pulse Rate 95 03/24/25 13:41 Respiratory Rate 18 03/24/25 13:44 Blood Pressure 128/96 H 03/24/25 13:41 Pulse Oximetry 96 03/24/25 13:41 MDM - Fever MDM Narrative Medical decision making narrative: 54-year-old male presents to the emergency department for fever for the past 3 days. Vitals with a temperature of 99.9?, otherwise unremarkable. Patient is resting comfortably in exam. Exam is notable for the above. Lab work with mild leukopenia of 4.4 consistent with viral syndrome. No anemia, normal platelets. Chemistries are unremarkable. Urinalysis is unremarkable. Viral swabs are negative. CK and magnesium were within normal limits. Chest x- ray shows no acute cardiopulmonary findings. Patient updated on results. He remains resting comfortably in exam bed. Suspect viral syndrome. Advised to drink plenty of fluids, take Tylenol ibuprofen as needed for body aches and pains as well as fever and follow-up closely with his PCP. I discussed strict ED return precautions. He is agreeable with the plan verbalized understanding. Discharged in stable condition. Lab Data 03/24/25 14:53 03/24/25 14:53 Labs: Lab Results 03/24/25 03/24/25 03/24/25 Range/Units 13:56 14:53 15:44 WBC 4.4 L (4.5-10.0) K/mm3 RBC 5.58 (4.6-6.20) M/mm3 Hgb 16.2 (14.0-18.0) g/dL Hct 47.9 (42.0-52.0) % MCV 85.8 (80-100) fl MCH 29.0 (26-34) pg MCHC 33.8 (32-36) g/dl RDW 13.4 (11.5-14.5) % Plt Count 221 (150-375) k/mm3 MPV 10.0 (7.4-10.4) fl Immature Gran % (Auto) 0.0 (0-0.5) % Neut % (Auto) 71.8 (45.5-73.1) % Lymph % (Auto) 19.1 (18.3-44.2) % Gage % (Auto) 8.2 (2.6-8.5) % Eos % (Auto) 0.2 (0-4.4) % Baso % (Auto) 0.7 (0.2-1.2) % Lymph # (Auto) 0.84 L (0.9-3.2) K/mm3 Gage # (Auto) 0.4 (0.1-0.6) K/mm3 Eos # (Auto) 0.0 (0-0.3) K/mm3 Baso # (Auto) 0.0 (0.0-0.1) K/mm3 Abs Immat Gran (auto) 0.00 (0.00-0.031) K/mm3 Absolute Neuts (auto) 3.2 (1.3-6.7) K/mm3 Absolute Nucleated RBC 0.000 (0.0-0.012) K/mm3 Nucleated RBC % 0.0 (0.0-0.2) % Sodium 139 (137-145) mmol/L Potassium 4.1 (3.4-5.0) mmol/L Chloride 104 (98-107) mmol/L Carbon Dioxide 26 (22-30) mmol/L Anion Gap 9 (4-12) mmol/L BUN 12 D (9-20) mg/dL Creatinine 0.94 (0.7-1.3) mg/dL Estim Creat Clear Calc 76 ml/min Estimated GFR > 60 (59 - ) Glucose 96 (65-110) mg/dL Calcium 8.8 (8.4-10.2) mg/dL Magnesium 2.1 (1.6-2.3) mg/dL Total Bilirubin 0.4 (0.2-1.3) mg/dL AST 43 (17-59) U/L ALT 27 (6-50) U/L Alkaline Phosphatase 50 (38-126) U/L Total Creatine Kinase 92 (55-170) U/L Total Protein 7.2 (6.3-8.2) g/dL Albumin 4.1 (3.5-5.1) g/dL Urine Color Yellow (Yellow) Urine Appearance Clear (Clear) Urine pH 6.5 (5.0-9.0) Ur Specific [place] 1.014 (1.001-1.035) Urine Protein Negative (Negative) mg/dL Urine Glucose (UA) Negative (Negative) mg/dL Urine Ketones Negative (Negative) mg/dL Ur Blood (Man) Negative (Negative) Urine Nitrate Negative (Negative) Urine Bilirubin Negative (Negative) Urine Urobilinogen 0.2 (<2.0) mg/dL Leukocyte Esterase Rfl Negative (Negative) MORGAN/UL Influenza A (RT-PCR) Negative (Negative) Influenza B (RT-PCR) Negative (Negative) RSV (RT-PCR) Negative (Negative) SARS-CoV-2 RNA (RT-PCR) Negative (Negative) Discharge Plan Discharge Clinical Impression: Acute viral syndrome, Myalgia Patient Disposition: Home Condition: Stable Instructions: Antibiotic Form, Viral Syndrome (ED) Additional Instructions: Your evaluated in the emergency department for fevers, muscle soreness and body aches, nausea, chills. Your workup here is reassuring shows normal chest x-ray and urine sample. Your lab work is reassuring. Please make sure to drink plenty of fluids and take Tylenol and ibuprofen [id number] as directed as needed for pain. Follow-up closely with your primary care provider for further evaluation and management. Return to the emergency department if you are unable to tolerate food or fluids, you develop uncontrollable fever, rash, or other concerning symptoms. Patient Language: Portuguese Prescriptions: No Action metoprolol succinate 50 mg tablet extended release 24 hr 50 mg PO BID Qty: 90 3RF rosuvastatin 5 mg tablet See Rx Instructions .ROUTE .COMPLEX Qty: 90 3RF Dose Instruction: TAKE 1 TABLET BY MOUTH EVERY DAY Rx Instructions: TAKE 1 TABLET BY MOUTH EVERY DAY lorazepam 0.5 mg tablet 0.5 mg PO BID PRN (Reason: anxiety) Qty: 60 1RF Follow-up/Referrals: Leonid Lugo, [Primary Care Provider] -
[2025-03-24 15:00] LABS: Hematocrit 47.9 % (42.0-52.0); Hemoglobin 16.2 g/dL (14.0-18.0); Immature Granulocyte Percent A 0.0 % (0-0.5); Lymphocytes Absolute Auto 0.84 K/mm3 (0.9-3.2); Mean Corpuscular HGB Conc 33.8 g/dl (32-36); Mean Corpuscular Hemoglobin 29.0 pg (26-34); Mean Corpuscular Volume 85.8 fl (80-100); Nucleated Red Blood Cells Absolute Auto 0.000 K/mm3 (0.0-0.012); Nucleated Red Blood Cells Perc 0.0 % (0.0-0.2); Platelet Count Result 221 k/mm3 (150-375); Red Blood Count 5.58 M/mm3 (4.6-6.20); White Blood Count 4.4 K/mm3 (4.5-10.0)
[2025-03-24] MEDS: ACETAMINOPHEN 500 MG TABLET 1000 MG PO (15:08)
[2025-03-24] MEDS: SODIUM CHLORIDE 0.9% IV 1,000 ML 999 ML IV CONT (15:08)
[2025-03-24 15:11] LABS: Alanine Aminotransferase 27 U/L (6-50); Albumin Level 4.1 g/dL (3.5-5.1); Alkaline Phosphatase 50 U/L (38-126); Anion Gap 9 mmol/L (4-12); Aspartate Amino Transferase 43 U/L (17-59); Bilirubin,Total 0.4 mg/dL (0.2-1.3); Blood Urea Nitrogen 12 mg/dL (9-20); Calcium 8.8 mg/dL (8.4-10.2); Carbon Dioxide 26 mmol/L (22-30); Chloride 104 mmol/L (98-107); Creatine Kinase 92 U/L (55-170); Estimated CRCL calculation 76 ml/min; Estimated Glomerular Filt Rate > 60; Glucose 96 mg/dL (65-110); Magnesium 2.1 mg/dL (1.6-2.3); Potassium 4.1 mmol/L (3.4-5.0); Sodium 139 mmol/L (137-145); Total Protein 7.2 g/dL (6.3-8.2)
[2025-03-24 15:55] LABS: Add Urine Microscopic? NO; Appearance Urine Clear (Clear); Glucose Urine UA Negative (Negative); Leukocyte Esterase Ur Negative LEU/UL (Negative); Nitrate Urine Negative (Negative); Specific Grav Ur 1.014 (1.001-1.035)
== END 2025-03-24 16:22 | disposition home or self-care (01) ==
PROVIDERS: Emergency Medicine; Emergency Provider Physician Assistant; PCP Internal Medicine
DX: B34.9 Viral infection, unspecified (principal); M79.10 Myalgia, unspecified site; I10 Essential (primary) hypertension; E78.5 Hyperlipidemia, unspecified; Z87.891 Personal history of nicotine dependence; Z20.822 Contact with and (suspected) exposure to COVID-19
CPT/HCPCS: 36415; 71046; 80053; 81003; 82550; 83735; 85025; 87637; 96360; 99283; A9270; J7030

== ENCOUNTER 2025-03-26 11:13 | Outpatient (CLI) | payer BC, SELFPAY ==
--- OUTSIDE RECORDS SUMMARY | 2025-03-26 11:18 | XMS_ITS | Clinical Summary ---
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
--- OUTSIDE RECORDS SUMMARY | 2025-03-26 11:18 | XMS_ITS | Referral Summary ---
Author Organization [facility] [address] Address [address] [place] [address] Care Team Providers Care Direct Support Professional Name Role Phone Frederick Simpson MD Primary Care Provider +1 -[phone] Social History Tobacco Use Types Packs/Day Years Used Date Smoking Tobacco: Never Assessed Personal Safety Answer Date Recorded Getting School Help Needed Not on file 12/02 Sex and Gender Information Value Date Recorded Sex Assigned at Not on file Legal Sex Male 9:46 AM APPLIQUE SEWER Gender Identity Not on file Sexual Orientation Not on file Plan of Treatment Not on file Insurance CHOICE PLUS [facility] HMO/PPO Address: [facility] [address] [place] [address] Care Teams Direct Support Professional Relationship Specialty Start Date End Date Frederick Simpson MD [address] [place] [address] PCP - General Internal Medicine 10/03/19
[2025-03-26 12:20] LABS: Add Urine Microscopic? NO; Appearance Urine Clear (Clear); Glucose Urine UA Negative (Negative); Leukocyte Esterase Ur Negative LEU/UL (Negative); Nitrate Urine Negative (Negative); Specific Grav Ur 1.009 (1.001-1.035)
[2025-03-26 12:25] LABS: Negative Monotest Control Negative (Negative); Positive Monotest Control Positive (Positive)
[2025-03-26 13:05] LABS: Free T3 3.50 pg/mL (2.71-6.16); Free T4 Free Thyroxine 1.40 ng/dL (0.78-2.19)
[2025-03-26 13:25] LABS: CRP 0.7 mg/dL (<1.0); Creatine Kinase 516 U/L (55-170)
[2025-03-26 13:52] LABS: Thyroid Stimulating Hormone 1.230 uIU/mL (0.465-4.680)
[2025-03-26 14:23] LABS: Iron 63 ug/dL (49-181)
[2025-03-26 14:34] LABS: Percent Iron Saturation 19 % (20-50)
[2025-03-26 14:59] LABS: Ferritin 122.00 ng/mL (11.1-264)
[2025-03-30 14:08] LABS: Free Testosterone (Direct) 7.8 pg/mL (7.2-24.0)
== END 2025-03-26 11:14 | disposition home or self-care (01) ==
LOC: ANHGOSHLAB 11:16
PROVIDERS: PCP Internal Medicine; Visit Provider Internal Medicine
DX: R53.1 Weakness (principal); R53.83 Other fatigue; E78.5 Hyperlipidemia, unspecified
CPT/HCPCS: 36415; 81003; 82085; 82550; 82728; 83540; 83550; 84402; 84403; 84439; 84443; 84481; 85652; 86140; 86308

== ENCOUNTER 2025-04-01 07:58 | Outpatient (CLI) | payer BC, SELFPAY ==
--- OUTSIDE RECORDS SUMMARY | 2025-04-01 08:01 | XMS_ITS | Clinical Summary ---
Author Organization [facility] [place] [address] Address [address] [place] [address] Care Team Providers Care Forest Technician Name Role Phone Frederick Simpson MD Primary Care Provider +1 -[phone] Social History Tobacco Use Types Packs/Day Years Used Date Smoking Tobacco: Never Assessed Personal Safety Answer Date Recorded Getting School Help Needed Not on file 12/02 Sex and Gender Information Value Date Recorded Sex Assigned at Not on file Legal Sex Male 9:46 AM DISPATCH COORDINATOR Gender Identity Not on file Sexual Orientation Not on file Plan of Treatment Not on file Insurance CHOICE PLUS Care Teams Forest Technician Relationship Specialty Start Date End Date Frederick Simpson MD [address] [place] [address] PCP - General Internal Medicine 10/03/19
--- OUTSIDE RECORDS SUMMARY | 2025-04-01 08:01 | XMS_ITS | Referral Summary ---
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
[2025-04-01 21:41] LABS: Hepatitis B Surface Antigen Negative (Negative)
[2025-04-02 13:09] LABS: Anti-CCP Ab, IgG/IgA 3 units (0-19)
[2025-04-03 16:08] LABS: ANA by IFA Rfx Titer/Pattern Negative (.)
== END 2025-04-01 07:59 | disposition home or self-care (01) ==
LOC: ANHGOSHLAB 07:59
PROVIDERS: PCP Internal Medicine; Visit Provider Internal Medicine
DX: R53.1 Weakness (principal); R53.82 Chronic fatigue, unspecified; M60.9 Myositis, unspecified; R74.8 Abnormal levels of other serum enzymes
CPT/HCPCS: 36415; 82533; 86037; 86038; 86200; 86225; 86430; 86803; 87340

== ENCOUNTER 2025-04-22 11:35 | Outpatient (CLI) | payer BC, SELFPAY ==
--- OUTSIDE RECORDS SUMMARY | 2025-04-22 12:01 | XMS_ITS | Clinical Summary ---
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
--- OUTSIDE RECORDS SUMMARY | 2025-04-22 12:01 | XMS_ITS | Referral Summary ---
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
[2025-04-22 15:22] LABS: Creatine Kinase 88 U/L (55-170)
[2025-04-22 15:55] LABS: Prostate Specific Antigen 0.4 ng/mL (< OR = 4.0)
== END 2025-04-22 11:36 | disposition home or self-care (01) ==
LOC: ANHGOSHLAB 11:35
PROVIDERS: PCP Internal Medicine; Visit Provider Internal Medicine
DX: R53.1 Weakness (principal); R53.82 Chronic fatigue, unspecified; Z12.5 Encounter for screening for malignant neoplasm of prostate
CPT/HCPCS: 36415; 82550; 84153; G0103

== ENCOUNTER 2025-05-22 21:36 | Emergency (ER) | payer SELFPAY ==
--- NOTE | 2025-05-22 21:49 | ECG_ITS ---
Test Date: 2025-05-22 22:00:42 Measurements Intervals [place] Rate: 73 P: 9 GA: 169 QRS: -31 QRSD: 107 T: 30 QT: 411 QTc: 454 Interpretive Statements SINUS RHYTHM MARKED LEFT AXIS DEVIATION [QRS AXIS < -30] Compared to ECG 05/22/2025 21:52:52 Left-axis deviation now present Electronically Signed On 05-23-2025 11:32:55 CDT by Dax Lopez M.D.
--- NOTE | 2025-05-22 21:58 | ECG_ITS ---
Test Date: 2025-05-22 21:52:52 Measurements Intervals [place] Rate: 73 P: 176 ID: 162 QRS: 209 QRSD: 114 T: 152 QT: 397 QTc: 439 Interpretive Statements SINUS RHYTHM ARM LEADS REVERSED [INVERTED P AND QRS IN I] ATYPICAL ECG No previous ECG available for comparison Electronically Signed On 05-23-2025 11:32:45 CDT by Dax Lopez M.D.
[2025-05-22 22:08] VITALS: BP 110/78; PULSE 74; RESP 15; TEMP 37; O2SAT 96
== END 2025-05-22 23:30 | disposition left against medical advice (07) ==
PROVIDERS: Emergency Provider Student in an Organized Health Care Education/Training Program; PCP Internal Medicine
DX: R51.9 Headache, unspecified (principal)
CPT/HCPCS: 82948; 93005; 99199